=== PATIENT | female | born 1965 | race African-American/Black ===

== ENCOUNTER 2017-09-09 06:10 | Emergency (ER) | payer MEDICAID ==
[~2017-09-09] VITALS: Ht 165.1 cm; Wt 123.0 kg
[2017-09-09] MEDS ORDERED: IBUPROFEN 800MG TABLET PO ONE (09:00)
[2017-09-09 12:20] VITALS: BP 150/77
== END 2017-09-09 12:28 | disposition home or self-care (01) ==
LOC: ER 06:23
DX: M25.562 Pain in left knee (principal); M25.511 Pain in right shoulder; X58.XXXA Exposure to other specified factors, initial encounter; Y93.89 Activity, other specified; Y92.89 Other specified places as the place of occurrence of the external cause; Y99.8 Other external cause status
CPT/HCPCS: 73562; 99284; L1830